=== PATIENT | male | born 1970 | race Hispanic/Latino ===

== ENCOUNTER 2021-12-06 01:47 | Inpatient (IN) | payer BC ==
[~2021-12-06] VITALS: Ht 170.2 cm; Wt 101.2 kg
[2021-12-06 02:05] VITALS: BP 141/92
[2021-12-06] MEDS ORDERED: ZOLPIDEM TARTRATE 5 MG TAB PO PRN (02:30)
[2021-12-06] MEDS ORDERED: HYDROCODONE/ACETAMINOPHEN 5/325 MG TAB PO PRN ×2 (02:30)
[2021-12-06] MEDS ORDERED: 0.9%NACL 1000ML 1,000 ML IV SCH (02:30)
[2021-12-06] MEDS ORDERED: ONDANSETRON 4MG INJ IV PRN (02:30)
[2021-12-06] MEDS ORDERED: ATOR40TA71 PO (02:43)
[2021-12-06] MEDS ORDERED: DULA3PEN SQ (02:43)
[2021-12-06] MEDS ORDERED: METF-446 PO (02:43)
[2021-12-06] MEDS ORDERED: LISI5TAB21 PO (02:43)
[2021-12-06] MEDS ORDERED: DAPA10TA PO (02:43)
[2021-12-06] MEDS ORDERED: INSU100I26 SQ (02:43)
[2021-12-06] MEDS: 0.9%NACL 1000ML 1,000 ML IV SCH ×3 (02:47→22:54)
[2021-12-06 02:54] LABS: BASOPHILS % (AUTO) 0.5 % (0.0-5.0); EOSINOPHILS % (AUTO) 2.3 % (0.0-8.0); HEMATOCRIT 41.1 % (42-54); LYMPHOCYTES % (AUTO) 29.9 % (21.0-51.0); MEAN CORPUSCULAR HEMOGLOBIN 29.9 pg (27.0-33.0); MEAN CORPUSCULAR HGB CONC 33.8 g/dL (32.0-36.0); MEAN CORPUSCULAR VOLUME 88.4 fL (79-99); MONOCYTES % (AUTO) 6.3 % (3.0-13.0); NEUTROPHILS % (AUTO) 60.9 % (40.0-77.0); PLATELET COUNT (AUTO) 173 K/uL (130-400); RED BLOOD CELL COUNT(AUTO) 4.65 MIL/uL (4.50-6.20); RED CELL DISTRIBUTION WIDTH 13.1 % (11.0-15.5); WHITE BLOOD COUNT (AUTO) 7.9 K/uL (4.8-10.8)
[2021-12-06 03:25] LABS: CREATININE 0.9 mg/dL (0.5-1.5); MAGNESIUM 1.6 mg/dL (1.80-2.40); PHOSPHORUS 3.2 mg/dL (2.5-4.9); POTASSIUM 3.7 mmol/L (3.5-5.1)
[2021-12-06 04:00] VITALS: BP 124/72
[2021-12-06] MEDS: MAGNESIUM 2GM PREMIX 50ML 50 ML IV PRN (04:36)
[2021-12-06] MEDS: INSULIN HUMULIN R 100 UNIT/ML 3ML SQ SCH ×4 (06:36→20:42)
[2021-12-06 08:00] VITALS: BP 137/93
[2021-12-06] MEDS: FAMOTIDINE 20MG TAB PO SCH ×2 (09:40→20:26)
[2021-12-06 12:00] VITALS: BP 115/72
[2021-12-06 16:00] VITALS: BP 111/73
[2021-12-06 20:00] VITALS: BP 123/58
[2021-12-07] VITALS: BP 117/87
[2021-12-07 02:28] LABS: BASOPHILS % (AUTO) 0.5 % (0.0-5.0); EOSINOPHILS % (AUTO) 4.5 % (0.0-8.0); HEMATOCRIT 41.9 % (42-54); LYMPHOCYTES % (AUTO) 32.4 % (21.0-51.0); MEAN CORPUSCULAR HEMOGLOBIN 29.4 pg (27.0-33.0); MEAN CORPUSCULAR HGB CONC 33.4 g/dL (32.0-36.0); MEAN CORPUSCULAR VOLUME 87.8 fL (79-99); MONOCYTES % (AUTO) 7.2 % (3.0-13.0); NEUTROPHILS % (AUTO) 55.1 % (40.0-77.0); PLATELET COUNT (AUTO) 163 K/uL (130-400); RED BLOOD CELL COUNT(AUTO) 4.77 MIL/uL (4.50-6.20); RED CELL DISTRIBUTION WIDTH 12.8 % (11.0-15.5); WHITE BLOOD COUNT (AUTO) 7.5 K/uL (4.8-10.8)
[2021-12-07 02:47] LABS: ALBUMIN 3.1 g/dL (3.5-5.0); BILIRUBIN,TOTAL 0.3 mg/dL (0.2-1.0); CREATININE 0.9 mg/dL (0.5-1.5); MAGNESIUM 1.6 mg/dL (1.80-2.40); POTASSIUM 3.9 mmol/L (3.5-5.1); TOTAL PROTEIN, SERUM 6.2 g/dL (6.0-8.3)
[2021-12-07] MEDS: MAGNESIUM 2GM PREMIX 50ML 50 ML IV PRN (03:42)
[2021-12-07 04:00] VITALS: BP 134/79
[2021-12-07] MEDS: 0.9%NACL 1000ML 1,000 ML IV SCH ×2 (05:37→12:03)
[2021-12-07] MEDS: INSULIN HUMULIN R 100 UNIT/ML 3ML SQ SCH ×2 (06:39→12:02)
[2021-12-07 08:00] VITALS: BP 140/82
[2021-12-07] MEDS: FAMOTIDINE 20MG TAB PO SCH (09:10)
[2021-12-07 12:06] VITALS: BP 134/80
== END 2021-12-07 14:30 | disposition home or self-care (01) | DRG 558 ==
LOC: OBSVTOIN 01:47 → 3CH 01:47
PROVIDERS: ADMIT Internal Medicine; ATTEND Internal Medicine
DX: M62.82 Rhabdomyolysis (principal); E11.9 Type 2 diabetes mellitus without complications; I10 Essential (primary) hypertension
CPT/HCPCS: 36415; 80048; 80053; 82550; 82948; 83735; 84100; 85025; G0378; J1815; J3475